=== PATIENT | female | born 1995 | race African-American/Black ===

== ENCOUNTER 2023-09-15 15:36 | Emergency (ER) | payer MEDICAID ==
[~2023-09-15] VITALS: Ht 170.2 cm; Wt 67.1 kg
[2023-09-15 15:40] VITALS: BP_SYST 95; PULSE 89; RESP 18; TEMP 97.2; O2SAT 99
[2023-09-15] MEDS ORDERED: IBUPROFEN 800 MG TABLET PO ONE (16:30)
[2023-09-15] MEDS ORDERED: IBUP-1971 PO (18:00)
[2023-09-15] MEDS ORDERED: DICL20GE TP (18:00)
== END 2023-09-15 18:27 | disposition home or self-care (01) ==
LOC: SED 15:36
DX: S83.92XA Sprain of unspecified site of left knee, initial encounter (principal); Z79.899 Other long term (current) drug therapy; W09.8XXA Fall on or from other playground equipment, initial encounter; Y93.89 Activity, other specified; Y92.89 Other specified places as the place of occurrence of the external cause; Y99.8 Other external cause status
CPT/HCPCS: 73564; 99283